=== PATIENT | female | born 1945 | race Caucasian/White ===

== ENCOUNTER → 2018-03-28 | Outpatient (CLI) | payer MEDICARE ==
--- NOTE | 2018-03-28 11:53 | Diagnostic Imaging Report ---
Exam: Lumbar spine lateral and oblique History: Back pain Comparison: None. Findings: No acute fracture. Degenerative anterolisthesis of L4 on L5. Multilevel degenerative endplate change with mild narrowing at L4-5 and L5-S1. Facet arthrosis L4-5 L5-S1. Vascular calcifications. Impression: Degenerative anterolisthesis L4 on L5. Moderate spondyloarthropathy L4-5 L5-S1. Signed by: Dr. Juan Jose Silva M.D. on 03/28/2018 11:49 AM
== END ==
LOC: RAD 10:50
PROVIDERS: ATTEND Family Medicine
DX: M54.40 Lumbago with sciatica, unspecified side (principal)
CPT/HCPCS: 72110

== ENCOUNTER → 2019-06-14 | Day surgery (SDC) | payer MEDICARE ==
[2019-06-12 15:24] LABS: BASOPHILS % 0.4 % (0.0-1.0); EOSINOPHILS # (AUTO) 0.1 (0.0-0.4); EOSINOPHILS % 1.6 % (0.0-6.0); HEMATOCRIT 41.3 % (34.2-44.1); HEMOGLOBIN 13.3 g/dL (12.0-16.0); LYMPHOCYTES # (AUTO) 2.8 (1.0-3.2); MEAN CORPUSCULAR HEMOGLOBIN 30.8 pg (28-32); MEAN CORPUSCULAR HGB CONC 32.2 g/dL (31-35); MEAN CORPUSCULAR VOLUME 95.6 fL (81-99); MONOCYTES # (AUTO) 0.7 (0.2-0.8); MONOCYTES % 8.9 % (4.4-11.3); NEUTROPHILS % 51.7 % (38.7-80.0); PLATELET COUNT 220 x10e3/uL (140-360); RED BLOOD COUNT 4.32 x10e6/uL (3.6-5.1); RED CELL DISTRIBUTION WIDTH 12.6 % (11.7-14.4)
[~2019-06-14] MED LIST: AMLODIPINE BESYL5 MG PO; DEXAMETHASONE SOD PHOS 10 MG/1 ML VIAL ONE; ESTRADIOL1 MG PO; FENTANYL CITRATE/PF 100MCG/2 ML INJ ONE; HYDROCHLOROTHIA25 MG PO; IOPAMIDOL 300 MG/ML 15ML VIAL IT ONE; ISOSORBIDE MONO20 MG PO; JARDIANCE10 MG PO; LEVOTHYROXINE88 MCG PO; LIDOCAINE HCL 1% 30ML-PF VIAL ONE; LIDOCAINE HCL 2% LOCAL INJ 5 ML SDV VIAL INJ ONE; LOSARTAN POTAS100 MG PO; METOPROLOL PO; MIDAZOLAM HCL 2 MG/2 ML VIAL ONE; PROPOFOL IV EMULSION 10 MG/ML 20 ML VIAL ONE; PROTONIX40 MG/ML PO; SEVOFLURANE INHAL SOLN 250 ML PEN BTL ONE
[2019-06-14 08:15] VITALS: BP 111/59
--- OUTSIDE RECORDS SUMMARY | 2019-06-22 11:16 | XMS REPORT ---
Author Author [facility] Address Unknown Phone Unavailable Care Team Providers Care Deputy Jailer Name Role Phone TAMMY DIEHL Unavailable Unavailable Problems This patient has no known problems. Allergies, Adverse Reactions, Alerts This patient has no known allergies or adverse reactions. Medications This patient has no known medications. Results Test Description Test Time Test Comments Text Results Atomic Results Result Comments SCR MAMM BILATERAL FACUNDO CAD DIGITAL 2018-12-14 13:51:56 - SCR MAMM BILATERAL FACUNDO CAD DIGITALBILATERAL DIGITAL SCREENING MAMMOGRAM 3D/2D WITH CAD: 12/14/2018CLINICAL: Asymptomatic. Digital breast tomosynthesis was performed in addition to routine CC and MLO views. Current mammographic images were evaluated by either a PostPath M-Vu or a [employer]! ImageChecker CAD (computer aided detection system). Comparison is made to exams dated 12/13/2017 mammogram - [facility], 12/09/2015 mammogram - [facility], and 04/16/2014 mammogram - [facility]. There are scattered fibroglandular tissues in both breasts. There are benign calcifications in both breasts. No suspicious mass, architectural distortion, malignant type calcification, or lymph node abnormality detected. Breast architecture is stable compared to prior exams.IMPRESSION: BENIGNThere is no mammographic evidence of malignancy. Resume annual screening mammography in one year. Mando Owens M.D. ss/penrad:12/14/2018 13:51:56 Road Commissioner: Farrah DARDEN, [facility] sent: BIRADS 1-2 Normal Mammogram BI-RADS: 2 Benign SP LUMBAR, COMPLETE MIN 4VW 2018-03-28 11:46:[address] [address] Patient Name: CANDACE HERNANDEZ MR #: [id number] : 1945 Age/Sex: 72/F Req #: [id number] Adm Physician: Ordered by: TAMMY DIEHL MD Report #: [id number] Location: [facility] Room/Bed: Procedure: [id number] DX/SP LUMBAR, COMPLETE MIN 4VW Exam Date: 03/28/18 Exam Time: 1120 REPORT STATUS: Signed Exam: Lumbar spine lateral and oblique History: Back pain Comparison: None. Findings: No acute fracture. Degenerative anterolisthesis of L4 on L5. Multilevel degenerative endplate change with mild narrowing at L4-5 and L5-S1. Facet arthrosis L4-5 L5-S1. Vascular calcifications. Impression: Degenerative anterolisthesis L4 on L5. Moderate spondyloarthropathy L4-5 L5-S1. Signed by: Dr. Emani Person M.D. on 03/28/2018 11:49 AM Dictated By: EMANI PERSON MD [id number] Transcribed By: RENÉE on 03/28/18 1149 COPY TO: TAMMY DIEHL MD
== END | disposition home or self-care (01) ==
LOC: OR 06:11
PROVIDERS: ATTEND Physical Medicine & Rehabilitation Pain Medicine
DX: M54.16 Radiculopathy, lumbar region (principal); Z88.2 Allergy status to sulfonamides; Z88.8 Allergy status to other drugs, medicaments and biological substances; I10 Essential (primary) hypertension; E11.9 Type 2 diabetes mellitus without complications; I25.10 Atherosclerotic heart disease of native coronary artery without angina pectoris
CPT/HCPCS: 36415 ×2; 64483; 64484; 77003; 82948; 85025; J1100; J2001 ×2; J2250; J2704; J3010; Q9967

== ENCOUNTER → 2021-06-10 | Outpatient (CLI) | payer MEDICARE ==
[~2021-06-10] MED LIST changes: -DEXAMETHASONE SOD PHOS 10 MG/1 ML VIAL ONE; -FENTANYL CITRATE/PF 100MCG/2 ML INJ ONE; -IOPAMIDOL 300 MG/ML 15ML VIAL IT ONE; -LIDOCAINE HCL 1% 30ML-PF VIAL ONE; -LIDOCAINE HCL 2% LOCAL INJ 5 ML SDV VIAL INJ ONE; -MIDAZOLAM HCL 2 MG/2 ML VIAL ONE; -PROPOFOL IV EMULSION 10 MG/ML 20 ML VIAL ONE; -SEVOFLURANE INHAL SOLN 250 ML PEN BTL ONE
== END ==
LOC: RAD 11:48
PROVIDERS: ATTEND Family Medicine
DX: R60.9 Edema, unspecified (principal); M79.89 Other specified soft tissue disorders
CPT/HCPCS: 93970

== ENCOUNTER → 2021-09-28 | Outpatient (CLI) | payer MEDICARE | LOC: MRI 07:28 | PROVIDERS: ATTEND Nurse Practitioner Adult Health | DX: M23.92 Unspecified internal derangement of left knee (principal) ==